=== PATIENT | female | born 1995 | race Hispanic/Latino ===

== ENCOUNTER 2019-02-07 08:59 | Emergency (ER) | payer BC ==
[2019-02-07] MEDS ORDERED: ONDANSETRON 4 MG/2 ML VIAL ONE ×2 (09:55→11:34)
[2019-02-07] MEDS ORDERED: NA CHLORIDE 0.9% 1,000 ML ONE ×2 (09:55→11:38)
[2019-02-07] MEDS ORDERED: FAMOTIDINE 20 MG/2 ML VIAL IV ONE (09:56)
[2019-02-07 10:25] LABS: Absolute Lymphocytes (CBC) 3.1 K/uL (0.7-4.9); Basophils % 0.5 % (0-1.3); Hematocrit 40.8 % (36.0-45.0); Lymphocytes % 21.9 % (15.3-44.8); MPV 8.5 fL (7.6-11.3)
[2019-02-07 10:42] LABS: Urine Blood NEGATIVE (NEG); Urine Glucose NEGATIVE (NEG); Urine Protein 1+ (NEG); Urine pH 5.5 (5.0-7.0)
[2019-02-07 10:44] LABS: ALT/SGPT 24 U/L (12-78); AST/SGOT 11 U/L (15-37); Albumin 4.6 g/dL (3.4-5.0); Alkaline Phosphatase 79 U/L (45-117); BUN Blood Urea Nitrogen 7 mg/dL (7-18); Bicarbonate 25 mmol/L (21-32); Bilirubin Direct 0.1 mg/dL (0-0.2); Bilirubin Total 0.4 mg/dL (0.2-1.0); Glucose Level 117 mg/dL (74-106); Lipase 86 U/L (73-393); Potassium 3.5 mmol/L (3.5-5.1); Protein, Total 8.7 g/dL (6.4-8.2); Sodium Level 144 mmol/L (136-145)
--- NOTE | 2019-02-07 11:33 | EDPHYS ---
Physician Documentation [facility] Name: Micheline Ricci Age: 23 yrs Sex: Female : 1995 Arrival Date: 02/07/2019 Time: 09:01 Bed 5 Private MD: Ganga Allen ED Physician Tino Jack HPI: 02/07 10:54 This 23 yrs old Female presents to ER via Ambulatory with complaints of maurilio Dizziness, Headache, Vomiting. 10:54 The patient presents with dizziness, generalized weakness. Onset: The symptoms/episode maurilio began/occurred this morning. 10:55 The patient presents with abdominal pain in the upper abdomen, in the lower abdomen. maurilio Onset: The symptoms/episode began/occurred this morning. The patient presents to the emergency department with nausea, vomiting, abdominal pain. The symptoms are aggravated by nothing. Historical: - Allergies: 09:41 No Known Allergies; ss - Home Meds: 09:41 None [Active]; ss - PMHx: 09:41 Asthma; Migraines; ss - PSHx: 09:41 None; ss - Immunization history:: Adult Immunizations up to date. - Social history:: Smoking status: Patient/guardian denies using tobacco. - Ebola Screening: : Patient denies exposure to infectious person Patient denies travel to an Ebola-affected area in the 21 days before illness onset. - Family history:: not pertinent. ROS: 10:55 Constitutional: Negative for fever, chills, and weight loss, Eyes: Negative for injury, maurilio pain, redness, and discharge, ENT: Negative for injury, pain, and discharge, Neck: Negative for injury, pain, and swelling, Cardiovascular: Negative for chest pain, palpitations, and edema, Respiratory: Negative for shortness of breath, cough, wheezing, and pleuritic chest pain, Back: Negative for injury and pain, : Negative for injury, bleeding, discharge, and swelling, MS/Extremity: Negative for injury and deformity, Skin: Negative for injury, rash, and discoloration, Neuro: Negative for headache, weakness, numbness, tingling, and seizure, Psych: Negative for depression, anxiety, suicide ideation, homicidal ideation, and hallucinations, Allergy/Immunology: Negative for hives, rash, and allergies, Endocrine: Negative for neck swelling, polydipsia, polyuria, polyphagia, and marked weight changes, Hematologic/Lymphatic: Negative for swollen nodes, abnormal bleeding, and unusual bruising. 10:55 Abdomen/GI: Positive for abdominal pain, nausea and vomiting. Exam: 10:55 Constitutional: This is a well developed, well nourished patient who is awake, alert, maurilio and in no acute distress. Head/Face: Normocephalic, atraumatic. Eyes: Pupils equal round and reactive to light, extra-ocular motions intact. Lids and lashes normal. Conjunctiva and sclera are non-icteric and not injected. Cornea within normal limits. Periorbital areas with no swelling, redness, or edema. ENT: Nares patent. No nasal discharge, no septal abnormalities noted. Tympanic membranes are normal and external auditory canals are clear. Oropharynx with no redness, swelling, or masses, exudates, or evidence of obstruction, uvula midline. Mucous membranes moist. Neck: Trachea midline, no thyromegaly or masses palpated, and no cervical lymphadenopathy. Supple, full range of motion without nuchal rigidity, or vertebral point tenderness. No Meningismus. Chest/axilla: Normal chest wall appearance and motion. Nontender with no deformity. No lesions are appreciated. Cardiovascular: Regular rate and rhythm with a normal S1 and S2. No gallops, murmurs, or rubs. Normal PMI, no JVD. No pulse deficits. Respiratory: Lungs have equal breath sounds bilaterally, clear to auscultation and percussion. No rales, rhonchi or wheezes noted. No increased work of breathing, no retractions or nasal flaring. Back: No spinal tenderness. No costovertebral tenderness. Full range of motion. Female : Normal external genitalia. Skin: Warm, dry with normal turgor. Normal color with no rashes, no lesions, and no evidence of cellulitis. MS/ Extremity: Pulses equal, no cyanosis. Neurovascular intact. Full, normal range of motion. Neuro: Awake and alert, GCS 15, oriented to person, place, time, and situation. Cranial nerves II-XII grossly intact. Motor strength 5/5 in all extremities. Sensory grossly intact. Cerebellar exam normal. Normal gait. Psych: Awake, alert, with orientation to person, place and time. Behavior, mood, and affect are within normal limits. 10:55 Abdomen/GI: Inspection: abdomen appears normal, Bowel sounds: normal, Palpation: mild abdominal tenderness, in all quadrants, Liver: no appreciated palpable abnormalities, Hernia: not appreciated. Vital Signs: 09:41 BP 139 / 93; Pulse 101; Resp 15; Temp 97.7(TE); Pulse Ox 97% on R/A; Weight 83.91 kg; ss Height 5 ft. 4 in. (162.56 cm); Pain 8/10; 10:30 BP 135 / 88; Pulse 84; Resp 16 S; Pulse Ox 100% on R/A; jl7 11:30 BP 123 / 89; Pulse 72; Resp 16 S; Pulse Ox 100% on R/A; jl7 12:45 BP 131 / 78; Pulse 77; Resp 16 S; Pulse Ox 100% on R/A; Pain 2/10; jl7 09:41 Body Mass Index 31.75 (83.91 kg, 162.56 cm) ss MDM: 09:43 [facility] medically screened. [facility] 10:57 Data reviewed: vital signs, nurses notes, lab test result(s). [facility] 02/07 09:45 Order name: Basic Metabolic Panel; Complete Time: 11:04 [facility] 02/07 09:45 Order name: CBC with Diff; Complete Time: 11:04 [facility] 02/07 09:45 Order name: Creatinine for Radiology; Complete Time: 11:04 [facility] 02/07 09:45 Order name: Hepatic Function; Complete Time: 11:04 [facility] 02/07 09:45 Order name: Lipase; Complete Time: 11:04 [facility] 02/07 09:45 Order name: Urine Culture [facility] 02/07 09:45 Order name: CT Head Brain wo Cont [facility] 02/07 10:37 Order name: Urine Dipstick--Ancillary (enter results); Complete Time: 11:04 02/07 10:37 Order name: Urine --Ancillary (enter results); Complete Time: 11:04 02/07 11:35 Order name: CT Abd/Pelvis - IV Contrast Only [facility] 02/07 09:45 Order name: IV Saline Lock; Complete Time: 10:42 [facility] 02/07 09:45 Order name: Labs collected and sent; Complete Time: 10:42 [facility] 02/07 09:45 Order name: Urine Dipstick-Ancillary (obtain specimen); Complete Time: 10:42 [facility] 02/07 09:45 Order name: Urine Test (obtain specimen); Complete Time: 10:42 maurilio Administered Medications: 10:25 Drug: NS 0.9% 1000 ml Route: IV; Rate: 1 bolus; Site: right antecubital; jl7 11:30 Follow up: Response: No adverse reaction; IV Status: Completed infusion; IV Intake: jl7 1000ml 10:26 Drug: Zofran 4 mg Route: IVP; Site: right antecubital; jl7 11:00 Follow up: Response: No adverse reaction; Nausea is decreased jl7 10:28 Drug: Pepcid 20 mg Route: IVP; Site: right antecubital; jl7 12:55 Follow up: Response: No adverse reaction jl7 11:44 Drug: Zofran 4 mg Route: IVP; Site: right antecubital; jl7 12:00 Follow up: Response: No adverse reaction; Nausea is decreased jl7 11:44 Drug: Tylenol 650 mg Route: PO; jl7 12:45 Follow up: Response: No adverse reaction; Pain is decreased jl7 11:44 Drug: NS 0.9% 1000 ml Route: IV; Rate: 1 bolus; Site: right antecubital; jl7 12:45 Follow up: IV Status: Completed infusion; IV Intake: 1000ml jl7 12:54 Not Given (Other Intervention Used): morphine 2 mg IVP once; (PAIN>8) RASS on ADMN: jl7 Combtv4, Very Agttd3, Agttd2, Rstlss1, AlertClm0, Drwsy-1, LtSdtn-2, ModSdtn-3, DpSdtn-4, UnArsble-5 x2 Disposition: 02/07/19 11:32 Discharged to Home. Impression: Vomiting, Abdominal tenderness. - Condition is Stable. - Discharge Instructions: Abdominal Pain, Adult, Nausea and Vomiting, Adult, Nausea and Vomiting, Adult, [id number], Abdominal Pain, Adult, Loam-ik-Kiqm, Abdominal Pain, Pediatric. - Prescriptions for Zofran 4 mg Oral Tablet - take 1 tablet by ORAL route every 12 hours As needed; 20 tablet. Bentyl 20 mg Oral Tablet - take 1 tablet by ORAL route every 6 hours As needed; 20 tablet. Pepcid 20 mg Oral Tablet - take 1 tablet by ORAL route every 12 hours for 10 days; 20 tablet. - Medication Reconciliation Form, Thank You Letter, Antibiotic Education, Prescription Opioid Use form. - Follow up: Ganga Allen; When: 2 - 3 days; Reason: Recheck today's complaints, Continuance of care, Re-evaluation by your physician. - Problem is new. - Symptoms have improved. Signatures: Dispatcher [employer] EDTino Page MD MD cha Smirch, Shelby, RN RN Reny Cortez RN RN jl7 Corrections: (The following items were deleted from the chart) 13:00 11:32 02/07/2019 11:32 Discharged to Home. Impression: Vomiting; Abdominal tenderness. jl7 Condition is Stable. Discharge Instructions: Abdominal Pain, Adult, Nausea and Vomiting, Adult, Nausea and Vomiting, Adult, [id number]-[id number], Abdominal Pain, Adult, Ytsk-xy-Dqpi, Abdominal Pain, Pediatric. Prescriptions for Zofran 4 mg Oral Tablet - take 1 tablet by ORAL route every 12 hours As needed; 20 tablet, Bentyl 20 mg Oral Tablet - take 1 tablet by ORAL route every 6 hours As needed; 20 tablet, Pepcid 20 mg Oral Tablet - take 1 tablet by ORAL route every 12 hours for 10 days; 20 tablet. and Forms are Medication Reconciliation Form, Thank You Letter, Antibiotic Education, Prescription Opioid Use. Follow up: Ganga Allen; When: 2 - 3 days; Reason: Recheck today's complaints, Continuance of care, Re-evaluation by your physician. Problem is new. Symptoms have improved. maurilio
--- NOTE | 2019-02-07 11:33 | ER ---
Nurse's Notes [facility] Name: Micheline Ricci Age: 23 yrs Sex: Female : 1995 Arrival Date: 02/07/2019 Time: 09:01 Bed 5 Private MD: Ganga Allen Diagnosis: Vomiting;Abdominal tenderness Presentation: 02/07 09:40 Presenting complaint: Patient states: Woke up this morning at 0600 with abd cramping, ss fatigue and vomiting. Patient reports that since she has been vomiting so much this morning she now has a headache, feels weak all over and has a headache. Transition of care: patient was not received from another setting of care. Onset of symptoms was February 07, 2019. Risk Assessment: Do you want to hurt yourself or someone else? Patient reports no desire to harm self or others. Initial Sepsis Screen: Does the patient meet any 2 criteria? No. Patient's initial sepsis screen is negative. Does the patient have a suspected source of infection? No. Patient's initial sepsis screen is negative. Care prior to arrival: None. 09:40 Method Of Arrival: Ambulatory ss 09:40 Acuity: DESTINY 3 ss 09:42 Note Patient reports this feels similar to the last time she had food poisoning. ss Historical: - Allergies: 09:41 No Known Allergies; ss - Home Meds: 09:41 None [Active]; ss - PMHx: 09:41 Asthma; Migraines; ss - PSHx: 09:41 None; ss - Immunization history:: Adult Immunizations up to date. - Social history:: Smoking status: Patient/guardian denies using tobacco. - Ebola Screening: : Patient denies exposure to infectious person Patient denies travel to an Ebola-affected area in the 21 days before illness onset. - Family history:: not pertinent. Screenin:00 Abuse screen: Denies threats or abuse. Denies injuries from another. Nutritional jl7 screening: No deficits noted. Tuberculosis screening: No symptoms or risk factors identified. Fall Risk IV access (20 points). Total Flores Fall Scale indicates No Risk (0-24 pts). Assessment: 09:50 General: Appears in no apparent distress. uncomfortable, ill, Behavior is cooperative, jl7 appropriate for age, anxious. Pain: Complains of pain in GALVEZ and diffuse abdominal pain Pain currently is 8 out of 10 on a pain scale. Neuro: Level of Consciousness is awake, alert, obeys commands, Oriented to person, place, time, situation. Cardiovascular: Patient's skin is warm and dry. Respiratory: Airway is patent Respiratory effort is even, unlabored, Respiratory pattern is regular, symmetrical. GI: Pt is actively vomiting bile, Reports nausea, vomiting, Patient currently denies diarrhea. : No signs and/or symptoms were reported regarding the genitourinary system. Derm: Skin is pink, warm \T\ dry. Musculoskeletal: No signs and/or symptoms reported regarding the musculoskeletal system. 11:00 Reassessment: Patient appears in no apparent distress at this time. Patient and/or jl7 family updated on plan of care and expected duration. Pain level reassessed. Patient is alert, oriented x 3, equal unlabored respirations, skin warm/dry/pink. 11:43 Reassessment: Pt will be discharged once fluids are done infusing and radiology results jl7 are back. 12:30 Reassessment: Patient appears in no apparent distress at this time. Patient and/or jl7 family updated on plan of care and expected duration. Pain level reassessed. Patient is alert, oriented x 3, equal unlabored respirations, skin warm/dry/pink. Patient states feeling better. Patient states symptoms have improved. 12:56 Reassessment: [facility] reports pt's CT is negative, she can be discharged at this time. jl7 Vital Signs: 09:41 BP 139 / 93; Pulse 101; Resp 15; Temp 97.7(TE); Pulse Ox 97% on R/A; Weight 83.91 kg; Height 5 ft. 4 in. (162.56 cm); Pain 8/10; 10:30 BP 135 / 88; Pulse 84; Resp 16 S; Pulse Ox 100% on R/A; jl7 11:30 BP 123 / 89; Pulse 72; Resp 16 S; Pulse Ox 100% on R/A; jl7 12:45 BP 131 / 78; Pulse 77; Resp 16 S; Pulse Ox 100% on R/A; Pain 2/10; jl7 09:41 Body Mass Index 31.75 (83.91 kg, 162.56 cm) ED Course: 09:01 Patient arrived in ED. as 09:01 Ganga Allen MD is Private Physician. as 09:41 Triage completed. ss 09:41 Arm band placed on right wrist. ss 09:43 Tino Jack MD is Attending Physician. maurilio 09:49 Reny Yeung RN is Primary Nurse. jl7 09:53 Inserted saline lock: 20 gauge in right antecubital area, using aseptic technique. jl7 Blood collected. 10:00 Patient has correct armband on for positive identification. Placed in gown. Bed in low jl7 position. Call light in reach. Side rails up X 1. Pulse ox on. NIBP on. Warm blanket given. 10:00 Initial lab(s) drawn, by me, sent to lab. Urine collected: clean catch specimen, clear. jl7 10:05 CT Head Brain wo Cont In Process Unspecified. EDMS 11:32 Ganga Allen MD is Referral Physician. [facility] 11:55 CT Abd/Pelvis - IV Contrast Only In Process Unspecified. EDMS 12:59 No provider procedures requiring assistance completed. IV discontinued, intact, jl7 bleeding controlled, No redness/swelling at site. Pressure dressing applied. Administered Medications: 10:25 Drug: NS 0.9% 1000 ml Route: IV; Rate: 1 bolus; Site: right antecubital; jl7 11:30 Follow up: Response: No adverse reaction; IV Status: Completed infusion; IV Intake: jl7 1000ml 10:26 Drug: Zofran 4 mg Route: IVP; Site: right antecubital; jl7 11:00 Follow up: Response: No adverse reaction; Nausea is decreased jl7 10:28 Drug: Pepcid 20 mg Route: IVP; Site: right antecubital; jl7 12:55 Follow up: Response: No adverse reaction jl7 11:44 Drug: Zofran 4 mg Route: IVP; Site: right antecubital; jl7 12:00 Follow up: Response: No adverse reaction; Nausea is decreased jl7 11:44 Drug: Tylenol 650 mg Route: PO; jl7 12:45 Follow up: Response: No adverse reaction; Pain is decreased jl7 11:44 Drug: NS 0.9% 1000 ml Route: IV; Rate: 1 bolus; Site: right antecubital; jl7 12:45 Follow up: IV Status: Completed infusion; IV Intake: 1000ml jl7 12:54 Not Given (Other Intervention Used): morphine 2 mg IVP once; (PAIN>8) RASS on ADMN: jl7 Combtv4, Very Agttd3, Agttd2, Rstlss1, AlertClm0, Drwsy-1, LtSdtn-2, ModSdtn-3, DpSdtn-4, UnArsble-5 x2 Intake: 11:30 IV: 1000ml; Total: 1000ml. jl7 12:45 IV: 1000ml; Total: 2000ml. jl7 Outcome: 11:32 Discharge ordered by . maurilio 13:00 Discharged to home ambulatory, with family. krystle 13:00 Condition: stable 13:00 Discharge instructions given to patient, family, Instructed on discharge instructions, follow up and referral plans. medication usage, Demonstrated understanding of instructions, follow-up care, medications, Prescriptions given X 3. 13:00 Patient left the ED. jl7 Signatures: Dispatcher [employer] EDTino Page MD MD cha Martinez, Amelia as Smirch, Shelby, Reny Webb RN, RN RN jl7
[2019-02-07] MEDS ORDERED: ACETAMINOPHEN 325 MG TABLET ONE (11:34)
[2019-02-07 13:09] VITALS: TEMP 97.7
[2019-02-07 13:10] VITALS: O2SAT 100
[2019-02-07 13:14] VITALS: BP 131/78
--- NOTE | 2019-02-07 22:14 | RAD REPORT ---
EXAM DESCRIPTION: CT - Head Brain Wo Cont - 02/07/2019 7:08 pm CLINICAL HISTORY: Dizziness COMPARISON: None TECHNIQUE: Computed axial tomography of the head was obtained. IV contrast was not requested. All CT scans are performed using dose optimization technique as appropriate and may include automated exposure control or mA/KV adjustment according to patient size. FINDINGS: An intracranial bleed is not seen . The ventricles are normal in caliber. No extra-axial fluid collection is noted. Mild cerebellar tonsillar ectopia Fluid within the sinuses/ mastoids is not seen. IMPRESSION: No acute intracranial abnormality is seen. If patient's symptoms persist MRI of the bra in would be recommended. Mild cerebellar tonsillar ectopia
--- NOTE | 2019-02-07 22:16 | RAD REPORT ---
EXAM DESCRIPTION: CT - Abdomen Pelvis W Contrast - 02/07/2019 7:17 pm CLINICAL HISTORY: Abdominal pain COMPARISON: none. TECHNIQUE: Computed axial tomography of the abdomen pelvis was obtained. 100 cc Isovue-300 was admin istered intravenously. Oral contrast was not requested which limits evaluation of bowel. All CT scans are performed using dose optimization technique as appropriate and may include automated exposure control or mA/KV adjustment according to patient size. FINDINGS: The liver, spleen, pancreas, adrenal and kidneys appear unremarkable. There is no evidence of diverticulitis. Normal appendix IMPRESSION: No acute abnormality is displayed.
== END 2019-02-07 13:00 | disposition home or self-care (01) ==
LOC: ER 08:59
DX: R10.819 Abdominal tenderness, unspecified site (principal)
CPT/HCPCS: 96361; 87088; 85025; 87086; 80048; 36415; 81025; 80076; 81003; 83690; 70450; 74177; 96375; 96374; 99284; Q9967; J7030 ×2; J2405 ×2

== ENCOUNTER 2019-04-10 13:50 | Emergency (ER) | payer BC ==
[2019-04-10] MEDS ORDERED: IPRATROPIUM BROM 0.5MG/2.5ML ONE (14:39)
[2019-04-10] MEDS ORDERED: predniSONE 20 MG TAB ONE (14:39)
[2019-04-10] MEDS ORDERED: ALBUTEROL 2.5 MG/3 ML NEB SOL ONE (14:39)
[2019-04-10] MEDS ORDERED: AMOX/K CLAV 875 MG TAB ONE (15:27)
--- NOTE | 2019-04-10 15:54 | ER ---
Nurse's Notes [facility] Name: Micheline Ricci Age: 23 yrs Sex: Female : 1995 Arrival Date: 04/10/2019 Time: 13:51 Bed 28 Private MD: Diagnosis: Streptococcal pharyngitis;Acute sinusitis;Unspecified asthma with (acute) exacerbation Presentation: 04/10 14:11 Presenting complaint: Patient states: Coughing, shortness of breath, sore throat x 2 jl7 days ago, started amoxicillin yesterday and not feeling any better and Dr. Harrell's office said I might need an x-ray. Transition of care: patient was not received from another setting of care. Onset of symptoms was April 08, 2019. Risk Assessment: Do you want to hurt yourself or someone else? Patient reports no desire to harm self or others. Initial Sepsis Screen: Does the patient meet any 2 criteria? No. Patient's initial sepsis screen is negative. Does the patient have a suspected source of infection? Yes: Productive cough/pneumonia. Care prior to arrival: None. 14:11 Method Of Arrival: Ambulatory [facility] 14:11 Acuity: DESTINY 4 jl7 PLATE SENSITIZER: 14:14 LMP 03/26/2019 [facility] Historical: - Allergies: 14:14 No Known Allergies; jl7 - Home Meds: 14:14 Klonopin Oral [Active]; jl7 - PMHx: 14:14 Asthma; Migraines; Anxiety; jl7 - PSHx: 14:14 None; jl7 - Immunization history:: Adult Immunizations not up to date. - Social history:: Smoking status: Patient uses tobacco products, smokes one-half pack cigarettes per day. - Ebola Screening: : No symptoms or risks identified at this time. Screenin:52 Abuse screen: Denies threats or abuse. Denies injuries from another. Nutritional aj1 screening: No deficits noted. Tuberculosis screening: No symptoms or risk factors identified. 16:10 Fall Risk None identified. aj1 Assessment: 14:52 General: Appears in no apparent distress. comfortable, Behavior is calm, cooperative, aj1 appropriate for age. Pain: Complains of pain in chest Pain does not radiate. Neuro: Level of Consciousness is awake, alert, obeys commands, Oriented to person, place, time, situation. Cardiovascular: Heart tones S1 S2 present Patient's skin is warm and dry. Respiratory: Reports shortness of breath cough that is hacking, persistent Airway is patent Respiratory effort is even, unlabored, Respiratory pattern is regular, symmetrical, Breath sounds with wheezes bilaterally. GI: No signs and/or symptoms were reported involving the gastrointestinal system. : No signs and/or symptoms were reported regarding the genitourinary system. EENT: No signs and/or symptoms were reported regarding the EENT system. Derm: No signs and/or symptoms reported regarding the dermatologic system. Skin is pink, warm \T\ dry. normal. Musculoskeletal: No signs and/or symptoms reported regarding the musculoskeletal system. Circulation, motion, and sensation intact. 15:27 Reassessment: Patient appears in no apparent distress at this time. No changes from aj1 previously documented assessment. Patient and/or family updated on plan of care and expected duration. Pain level reassessed. Patient is alert, oriented x 3, equal unlabored respirations, skin warm/dry/pink. Vital Signs: 14:14 BP 139 / 95; Pulse 89; Resp 17 S; Temp 98.3(O); Pulse Ox 97% on R/A; Weight 86.18 kg jl7 (R); Height 5 ft. 6 in. (167.64 cm) (R); Pain 5/10; 15:27 BP 122 / 59; Pulse 114; Resp 20; Pulse Ox 100% on R/A; aj1 14:14 Body Mass Index 30.67 (86.18 kg, 167.64 cm) jl7 ED Course: 13:51 Patient arrived in ED. as 14:13 Triage completed. jl7 14:14 Arm band placed on right wrist. Patient placed in an exam room, on a stretcher, on jl7 pulse oximetry. 14:20 Debbie Mccarthy FNP-C is [facility]. kb 14:20 Renny Interiano MD is Attending Physician. kb 14:30 Bed in low position. Call light in reach. Side rails up X 1. Verbal reassurance given. jp3 Pulse ox on. NIBP on. 14:30 Flu and/or RSV swab sent to lab. Strep swab sent to lab. Patient maintains SpO2 jp3 saturation greater than 95% on room air. 14:30 Strep Sent. jp3 14:30 Flu Sent. jp3 14:36 Lucila Farias, RN is Primary Nurse. aj1 14:52 No provider procedures requiring assistance completed. aj1 14:55 Chest Pa And Lat (2 Views) XRAY In Process Unspecified. EDMS 16:10 Patient did not have IV access during this emergency room visit. aj1 Administered Medications: 14:42 Drug: DuoNeb (3:1) (2.5 mg - 0.5 mg) 3 ml Route: Nebulizer; aj1 15:28 Follow up: Response: No adverse reaction aj1 14:42 Drug: predniSONE 40 mg Route: PO; aj1 15:28 Follow up: Response: No adverse reaction aj1 15:27 Drug: Augmentin 875 mg Route: PO; aj1 15:28 Follow up: Response: No adverse reaction aj1 Outcome: 15:53 Discharge ordered by . kb 16:10 Discharged to home ambulatory. aj1 16:10 Condition: good 16:10 Discharge instructions given to patient, Instructed on discharge instructions, follow up and referral plans. medication usage, Demonstrated understanding of instructions, follow-up care, medications, Prescriptions given X 2. 16:10 Patient left the ED. aj1 Signatures: Dispatcher [employer] EDRI Debbie Mccarthy, FOAM RUBBER MOLDER-C FOAM RUBBER MOLDER-Ckb Lucila Farias, RN RN aj1 Shakira Gay Jahala, RN RN jl7 Cory Abdul jp3
--- NOTE | 2019-04-10 15:54 | EDPHYS ---
Physician Documentation [facility] Name: Micheline Ricci Age: 23 yrs Sex: Female : 1995 Arrival Date: 04/10/2019 Time: 13:51 Bed 28 Private MD: ED Physician Renny Interiano HPI: 04/10 15:21 This 23 yrs old Female presents to ER via Ambulatory with complaints of Flu kb Symptoms. 15:22 The patient or guardian reports cough, that is intermittent, described as moderate, kb with no sputum, difficulty breathing, flu symptoms, low-grade fever. Onset: The symptoms/episode began/occurred yesterday. Severity of symptoms: At their worst the symptoms were moderate, in the emergency department the symptoms are unchanged. Modifying factors: The symptoms are alleviated by nothing, the symptoms are aggravated by nothing. Associated signs and symptoms: Pertinent positives: chest pain, fever, rhinorrhea, sore throat. The patient has not experienced similar symptoms in the past. The patient has not recently seen a physician. Pt reports cough, congestion, fever, sore throat, chest pain, wheezing and shortness of breath since yesterday. Took what she thought was amoxicillin yesterday, but upon further questioned we determined that is may be something else. States shortness of breath gets worse when she smokes too many cigarettes. . 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 - Social history:: Smoking status: Patient uses tobacco products, smokes one-half pack cigarettes per day. - Ebola Screening: : No symptoms or risks identified at this time. ROS: 15:20 Neck: Negative for injury, pain, and swelling, Cardiovascular: Negative for chest pain, kb palpitations, and edema, Abdomen/GI: Negative for abdominal pain, nausea, vomiting, diarrhea, and constipation, Back: Negative for injury and pain, MS/Extremity: Negative for injury and deformity, Skin: Negative for injury, rash, and discoloration, Neuro: Negative for headache, weakness, numbness, tingling, and seizure. 15:20 Constitutional: Positive for fever. 15:20 ENT: Positive for rhinorrhea, sinus congestion, sore throat. 15:20 Respiratory: Positive for cough, shortness of breath, wheezing, Negative for dyspnea on exertion, hemoptysis, orthopnea, pleurisy, sputum production. Exam: 15:20 Constitutional: This is a well developed, well nourished patient who is awake, alert, kb and in no acute distress. Head/Face: Normocephalic, atraumatic. Neck: Trachea midline, no thyromegaly or masses palpated, and no cervical lymphadenopathy. Supple, full range of motion without nuchal rigidity, or vertebral point tenderness. No Meningismus. Chest/axilla: Normal chest wall appearance and motion. Nontender with no deformity. No lesions are appreciated. Cardiovascular: Regular rate and rhythm with a normal S1 and S2. No gallops, murmurs, or rubs. Normal PMI, no JVD. No pulse deficits. Abdomen/GI: Soft, non-tender, with normal bowel sounds. No distension or tympany. No guarding or rebound. No evidence of tenderness throughout. Back: No spinal tenderness. No costovertebral tenderness. Full range of motion. Skin: Warm, dry with normal turgor. Normal color with no rashes, no lesions, and no evidence of cellulitis. MS/ Extremity: Pulses equal, no cyanosis. Neurovascular intact. Full, normal range of motion. Neuro: Awake and alert, GCS 15, oriented to person, place, time, and situation. Cranial nerves II-XII grossly intact. Motor strength 5/5 in all extremities. Sensory grossly intact. Cerebellar exam normal. Normal gait. 15:20 ENT: External ear(s): are unremarkable, Ear canal(s): are normal, TM's: fluid levels, bilaterally, Nose: is normal, Mouth: is normal. 15:20 Respiratory: the patient does not display signs of respiratory distress, Respirations: normal, Breath sounds: wheezing: inspiratory expiratory that is mild, that is moderate, is heard diffusely. Vital Signs: 14:14 BP 139 / 95; Pulse 89; Resp 17 S; Temp 98.3(O); Pulse Ox 97% on R/A; Weight 86.18 kg jl7 (R); Height 5 ft. 6 in. (167.64 cm) (R); Pain 5/10; 15:27 BP 122 / 59; Pulse 114; Resp 20; Pulse Ox 100% on R/A; aj1 14:14 Body Mass Index 30.67 (86.18 kg, 167.64 cm) jl7 MDM: 14:20 Patient medically screened. kb 15:21 Data reviewed: vital signs, nurses notes. Data interpreted: Pulse oximetry: on room air kb is 97 %. Interpretation: normal. 15:52 Test interpretation: by ED physician or midlevel provider: plain radiologic studies, kb neg. Counseling: I had a detailed discussion with the patient and/or guardian regarding: the historical points, exam findings, and any diagnostic results supporting the discharge/admit diagnosis, lab results, radiology results, the need for outpatient follow up, a family practitioner, to return to the emergency department if symptoms worsen or persist or if there are any questions or concerns that arise at home. Response to treatment: the patient's symptoms have resolved after treatment, wheezing resolved, lungs clear bilaterally. 04/10 14:21 Order name: Flu; Complete Time: 15:05 kb 04/10 14:21 Order name: Strep; Complete Time: 15:05 kb 04/10 14:36 Order name: Chest Pa And Lat (2 Views) XRAY; Complete Time: 16:29 kb Administered Medications: 14:42 Drug: DuoNeb (3:1) (2.5 mg - 0.5 mg) 3 ml Route: Nebulizer; aj1 15:28 Follow up: Response: No adverse reaction aj1 14:42 Drug: predniSONE 40 mg Route: PO; aj1 15:28 Follow up: Response: No adverse reaction aj1 15:27 Drug: Augmentin 875 mg Route: PO; aj1 15:28 Follow up: Response: No adverse reaction aj1 Disposition: 17:22 Co-signature as Attending Physician, Renny Interiano MD. rn Disposition: 04/10/19 15:53 Discharged to Home. Impression: Streptococcal pharyngitis, Acute sinusitis, Unspecified asthma with (acute) exacerbation. - Condition is Stable. - Discharge Instructions: Sinusitis, Adult, [id number], Strep Throat, [id number], Asthma, Adult, [id number]. - Prescriptions for Augmentin 875- 125 mg Oral Tablet - take 1 tablet by ORAL route every 12 hours for 10 days; 20 tablet. Prednisone 20 mg Oral Tablet - take 1 tablet by ORAL route once daily for 5 days; 5 tablet. - Medication Reconciliation Form, Thank You Letter, Antibiotic Education, Prescription Opioid Use, Work release form form. - Follow up: Emergency Department; When: As needed; Reason: Worsening of condition. Follow up: Private Physician; When: 2 - 3 days; Reason: Recheck today's complaints, Continuance of care, Re-evaluation by your physician. Signatures: Dispatcher [employer] EDMS Debbie Mccarthy, VENDING ROUTE DRIVER-C VENDING ROUTE DRIVER-CkLucila Ragsdale RN RN aj1 Renny Interiano MD MD rn Leal, Jahala, RN RN jl7 Corrections: (The following items were deleted from the chart) 16:10 15:53 04/10/2019 15:53 Discharged to Home. Impression: Streptococcal pharyngitis; Acute aj1 sinusitis; Unspecified asthma with (acute) exacerbation. Condition is Stable. Forms are Medication Reconciliation Form, Thank You Letter, Antibiotic Education, Prescription Opioid Use. Follow up: Emergency Department; When: As needed; Reason: Worsening of condition. Follow up: Private Physician; When: 2 - 3 days; Reason: Recheck today's complaints, Continuance of care, Re-evaluation by your physician. kb
--- NOTE | 2019-04-10 16:04 | RAD REPORT ---
EXAM DESCRIPTION: Manuel León (2 Views)04/10/2019 2:54 pm CLINICAL HISTORY: Cough COMPARISON: None FINDINGS: The lungs appear clear of acute infiltrate. The heart is normal size IMPRESSION: No acute abnormalities displayed
[2019-04-10 16:36] VITALS: TEMP 98.3
[2019-04-10 16:37] VITALS: BP 122/59; O2SAT 100
== END 2019-04-10 16:10 | disposition home or self-care (01) ==
LOC: ER 13:50
DX: J02.0 Streptococcal pharyngitis (principal); J01.90 Acute sinusitis, unspecified; J45.901 Unspecified asthma with (acute) exacerbation; F17.210 Nicotine dependence, cigarettes, uncomplicated
CPT/HCPCS: 71046; 87081; 87804; 94640; 99285; J7512